=== PATIENT | female | born 1940 | race Caucasian/White ===

== ENCOUNTER 2017-10-13 15:47 | Emergency (ER) | payer MEDICARE, MEDICAID ==
[2017-10-13 16:02] VITALS: BP 144/73
--- NOTE | 2017-10-13 17:07 | UC ---
Kimberlee Linares Rebecca, scribed for Kathy De La Garza MD on 10/13/17 at 1646 . Lower Extremity/Ankle HPI - HPI Summary HPI Summary: Pt is a 76 y/o F who presents to ED c/o L great toe pain s/p toenail injury and partial detachment. 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 Reports that only part of the toenail detached, with some of it remaining attached. Associated pain is severe, ranked 9/10 and she has not taken any medications for it. Last Tetanus shot was within the last 10 years. Has had ingrown toenails removed from that toe 2-3 times in the past, many years ago, one of which was done by Dr. Romina Friedman. - History of Current Complaint Chief Complaint: UCLowerExtremity Stated Complaint: TORN TOENAIL Time Seen by Provider: 10/13/17 16:44 Hx Obtained From: Patient Onset/Duration: Lasting Hours, Still Present Severity Currently: Severe Pain Intensity: 9 Pain Scale Used: 0-10 Numeric Aggravating Factor(s): Nothing Able to Bear Weight: Yes - Allergies/Home Medications Allergies/Adverse Reactions: Allergies Allergy/AdvReac Type Severity Reaction Status Date / Time Penicillins Allergy Rash Verified 10/13/17 16:03 contrast dye Allergy Rash Uncoded 12/04/14 09:45 PMH/Surg Hx/FS Hx/Imm Hx Endocrine History: Thyroid Disease Cardiovascular History: Hypertension GI/ History: Ulcer - Surgical History Surgical History: Yes Surgery Procedure, Year, and Place: TONSILECTOMY, PARTIAL HYSTERECTOMY, HTN, FIBROMYALGIA - Family History Known Family History: Positive: Cardiac Disease - Social History Alcohol Use: Occasionally Substance Use Type: None Smoking Status (MU): Never Smoked Tobacco - Immunization History Most Recent Tetanus Shot: ? thinks she's due Review of Systems Constitutional: Negative Skin: Negative Eyes: Negative ENT: Negative Respiratory: Negative Cardiovascular: Negative Gastrointestinal: Negative Genitourinary: Negative Motor: Negative Neurovascular: Negative Musculoskeletal: Other: - L great toe pain and partial toenail detachment Neurological: Negative Psychological: Negative All Other Systems Reviewed And Are Negative: Yes Physical Exam Vital Signs: Initial Vital Signs Temp 97.7 F 10/13/17 15:55 Pulse 82 10/13/17 15:55 Resp 20 10/13/17 15:55 BP 144/73 10/13/17 15:55 Pulse Ox 96 10/13/17 15:55 Re-Evaluation - Re-Evaluation First Eval Re-Evaluation Time: 17:50 Change: Improved Comment: The toenail is flat and looks much better. Lower Extremity Course/Dx - Course Course Of Treatment: Pt refused XR. Patient medications reviewed this visit. Allergies noted. Discharge - Sign-Out/Discharge Documenting (check all that apply): Discharge/Admit/Transfer - Discharge - Discharge Plan Referrals: Amaris Prado NP [Primary Care Provider] - Romina Friedman DPM [Doctor of Podiatric Medicine] - () The documentation as recorded by the Kimberlee fisher Rebecca accurately reflects the service I personally performed and the decisions made by me, Kathy De La Garza MD.
[2017-10-13] MEDS ORDERED: DOXYcycline CAP(*) 100 MG PO ONE (17:54)
--- NOTE | 2017-10-13 20:13 | UC ---
- Progress Note Progress Note: Pt called UC - read package insert on Doxy - states can cause stomach ulcers pt states can't take it will Rx bactrim - pt has previously taken without difficuty christiano 10/13/2017 Re-Evaluation - Re-Evaluation First Eval Re-Evaluation Time: 17:50 Change: Improved Comment: The toenail is flat and looks much better. Discharge - Sign-Out/Discharge Documenting (check all that apply): Post-Discharge Follow Up - Discharge Plan Condition: Stable Disposition: HOME Prescriptions: DOXYcycline CAP(*) [DOXYcycline 100MG CAP(*)] 100 mg PO BID #14 cap Sulfamethox/Trimethoprim DS* [Bactrim DS 800/160 TAB*] 1 tab PO BID #14 tab Patient Education Materials: [employer] (ED) Referrals: Amaris Prado NP [Primary Care Provider] - Romina Friedman DPM [Doctor of Podiatric Medicine] - () Rj Gonzalez [Doctor of Podiatric Medicine] - Titi Sorto DPM [Doctor of Podiatric Medicine] - Additional Instructions: - Take antibiotics as prescribed until gone - Leave today's bandage on for 24 hours. After, soak your foot in warm epsom salt water for 15 minutes. Cover wound with thick layer of antibiotic ointment and bandage. 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 - Billing Disposition and Condition Condition: STABLE Disposition: Home
== END 2017-10-13 18:15 | disposition home or self-care (01) ==
LOC: UCEAST 15:47
DX: M79.675 Pain in left toe(s) (principal); S91.202A Unspecified open wound of left great toe with damage to nail, initial encounter; W20.8XXA Other cause of strike by thrown, projected or falling object, initial encounter; Y93.9 Activity, unspecified; Y92.000 Kitchen of unspecified non-institutional (private) residence as the place of occurrence of the external cause; E07.9 Disorder of thyroid, unspecified; I10 Essential (primary) hypertension; Z88.0 Allergy status to penicillin; Z91.041 Radiographic dye allergy status; Z82.49 Family history of ischemic heart disease and other diseases of the circulatory system
CPT/HCPCS: 99212; A9270-GY; G0463

== ENCOUNTER 2021-11-21 14:15 | Inpatient (IN) ==
[2021-11-21] MEDS ORDERED: Ondansetron 4 mg VIAL 2 MG/ML 2 ml VIAL IV PRN (20:59)
[2021-11-21 22:44] LABS: ABS Lymphocytes 1.8 10^3/ul (1.0-4.8); ABS Monocytes 0.6 10^3/ul (0-0.8); ABS Neutrophils 7.8 10^3/ul (1.5-7.7); Hematocrit 37 % (35-47); Lymphocyte % 17.5 %; Mean Corpuscular HGB Conc 33 g/dL (31-36); Mean Corpuscular Hemoglobin 30 pg (27-31); Mean Corpuscular Volume 91 fL (80-97); Mean Platelet Volume 10.3 fL (7.4-10.4); Platelet Count 187 10^3/uL (150-450); Red Blood Count 4.02 10^6 /uL (3.70-4.87); Red Cell Distribution Width 16 % (10-15); White Blood Count 10.2 10^3/uL (3.5-10.8)
[2021-11-21 23:09] LABS: Albumin 3.4 g/dL (3.2-5.2); Calcium 9.1 mg/dL (8.6-10.3); Globulin 3.5 g/dL (2-4); Potassium 3.4 mmol/L (3.5-5.0); Total Bilirubin 0.8 mg/dL (0.2-1.0); Total Protein 6.9 g/dL (6.4-8.9); eGFR CKD-EPI 88.2 (>60)
[2021-11-21 23:23] LABS: TSH Ultra Thyroid Stim Horm 1.63 mcIU/mL (0.34-5.60)
[2021-11-21] MEDS ORDERED: Potassium Chlor 20 meq TAB.ER PO ONE (23:32)
[2021-11-21 23:33] LABS: Folate 5.21 ng/mL (5.90-24.80)
[2021-11-21 23:50] LABS: Magnesium 1.7 mg/dL (1.9-2.7)
[2021-11-22 00:34] LABS: Urine Appearance Clear; Urine Bilirubin Negative (Negative); Urine Blood Trace (Intact) (Negative); Urine Glucose Negative (Negative); Urine Ketones Trace (Negative); Urine Nitrite Positive (Negative); Urine Protein 1+ (30 mg/dL) (Negative); Urine Specific Gravity 1.025 (1.005-1.030); Urine Urobilinogen 0.2 (Negative) (Negative); Urine pH 5.5 (5.0-9.0)
[2021-11-22 00:40] LABS: Urine Color Amber
[2021-11-22] MEDS ORDERED: Cyanocobalamin INJ 1,000 MCG/ML VIAL 1 ML VIAL IM ONE (01:00)
[2021-11-22] MEDS ORDERED: Magnesium Sulfate 2 gm BAG 2 GM/50 ML BAG IVPB ONE (01:00)
[2021-11-22 01:33] LABS: Urine Bacteria 1+ (Absent); Urine Red Blood Cell Trace(0-2/hpf) (Absent); Urine Squamous Epithelial Cell Present (Absent); Urine White Blood Cell 1+(6-10/hpf) (Absent)
[2021-11-22] MEDS: Enoxaparin 40 MG/0.4 ML SYR SUBCUT SCH ×2 (02:14→23:28)
[2021-11-22] MEDS ORDERED: Droperidol 5 MG/2 ML 2 ML VIAL IV ONE (05:19)
[2021-11-23 06:47] LABS: ABS Eosinophils 0.2 10^3/ul (0-0.6); ABS Lymphocytes 2.1 10^3/ul (1.0-4.8); ABS Monocytes 0.7 10^3/ul (0-0.8); ABS Neutrophils 4.2 10^3/ul (1.5-7.7); Eosinophil % 2.4 %; Hematocrit 34 % (35-47); Hemoglobin 11.4 g/dL (12.0-16.0); Lymphocyte % 28.9 %; Mean Corpuscular HGB Conc 33 g/dL (31-36); Mean Corpuscular Hemoglobin 31 pg (27-31); Mean Corpuscular Volume 93 fL (80-97); Mean Platelet Volume 11.2 fL (7.4-10.4); Platelet Count 160 10^3/uL (150-450); Red Blood Count 3.71 10^6 /uL (3.70-4.87); Red Cell Distribution Width 16 % (10-15); White Blood Count 7.2 10^3/uL (3.5-10.8)
[2021-11-23 07:04] LABS: Calcium 8.6 mg/dL (8.6-10.3); Potassium 3.8 mmol/L (3.5-5.0); eGFR CKD-EPI 86.6 (>60)
[2021-11-23] MEDS ORDERED: Bupivacaine 0.25% SDV 30 ML ONE (14:17)
[2021-11-23] MEDS ORDERED: Etomidate 20 mg/10 ml 2 MG/ML 10 ml VIAL ONE (14:23)
[2021-11-23] MEDS ORDERED: fentaNYL 100 mcg/2 ml 50 MCG/ML VIAL ONE (14:23)
[2021-11-23] MEDS ORDERED: Propofol 10 MG/ML 20 ML BTL ONE (14:23)
[2021-11-23] MEDS ORDERED: Midazolam 2 mg/2 ml VIAL 1 mg/ml 2 ml VIAL (2 mg) ONE (14:24)
[2021-11-23] MEDS ORDERED: ROPIVACAINE 5 MG/ML 30 ML BTL (0.5%) ONE (14:27)
[2021-11-23] MEDS ORDERED: Bupivacaine 0.25% w/EPI 10 ML SDV ONE (14:27)
[2021-11-23] MEDS ORDERED: Lidocaine 2% PF 5 ML VIAL ONE (14:27)
[2021-11-23] MEDS ORDERED: Clindamycin 900 MG/D5W BAG 900 MG/50 ML BAG IVPB ONE (15:04)
[2021-11-23] MEDS ORDERED: Vancomycin 1,000 MG VIAL ONE (17:34)
[2021-11-23] MEDS ORDERED: HYDROmorphone 1 MG/1 ML SYRINGE IV PRN (18:18)
[2021-11-23] MEDS ORDERED: Ondansetron 4 mg VIAL 2 MG/ML 2 ml VIAL IV PRN (18:18)
[2021-11-23] MEDS ORDERED: Naloxone 0.4 mg VIAL 0.4 mg/ml 1 ml VIAL IV PRN (18:18)
[2021-11-23] MEDS ORDERED: fentaNYL 100 mcg/2 ml 50 MCG/ML VIAL IV PRN (18:18)
[2021-11-23] MEDS ORDERED: Acetaminophen IV 1 GM/100ML 1,000 MG/100 ML BAG IV PRN (18:18)
[2021-11-23] MEDS: Enoxaparin 40 MG/0.4 ML SYR SUBCUT SCH (21:43)
[2021-11-24] MEDS: ceFAZolin 1 GM X 3 DOSES POST-OP Q8H (AddVan) IVPB SCH ×2 (02:48→13:15)
[2021-11-24 05:31] LABS: ABS Lymphocytes 1.2 10^3/ul (1.0-4.8); ABS Monocytes 0.7 10^3/ul (0-0.8); ABS Neutrophils 6.4 10^3/ul (1.5-7.7); Hematocrit 31 % (35-47); Hemoglobin 10.3 g/dL (12.0-16.0); Lymphocyte % 14.5 %; Mean Corpuscular HGB Conc 34 g/dL (31-36); Mean Corpuscular Hemoglobin 31 pg (27-31); Mean Corpuscular Volume 92 fL (80-97); Platelet Count 171 10^3/uL (150-450); Red Blood Count 3.33 10^6 /uL (3.70-4.87); Red Cell Distribution Width 16 % (10-15); White Blood Count 8.4 10^3/uL (3.5-10.8)
[2021-11-24 06:00] LABS: Calcium 8.4 mg/dL (8.6-10.3); Potassium 4.1 mmol/L (3.5-5.0); eGFR CKD-EPI 88.2 (>60)
[2021-11-24] MEDS ORDERED: Cyanocobalamin INJ 1,000 MCG/ML VIAL 1 ML VIAL IM ONE (08:31)
[2021-11-24] MEDS ORDERED: Polyethylene Glycol 3350 17 GM PACKET PO PRN (16:50)
[2021-11-24] MEDS ORDERED: Senna TAB 8.6 mg TAB PO PRN (16:50)
[2021-11-24] MEDS: Haloperidol 5 mg/ml SDV IV/IM 5 MG/ML AMP IM PRN (21:35)
[2021-11-24] MEDS: Enoxaparin 40 MG/0.4 ML SYR SUBCUT SCH (21:39)
[2021-11-25 05:51] LABS: ABS Lymphocytes 1.9 10^3/ul (1.0-4.8); ABS Monocytes 0.9 10^3/ul (0-0.8); Eosinophil % 0.4 %; Hematocrit 30 % (35-47); Lymphocyte % 19.6 %; Mean Corpuscular HGB Conc 33 g/dL (31-36); Mean Corpuscular Hemoglobin 31 pg (27-31); Mean Corpuscular Volume 93 fL (80-97); Mean Platelet Volume 10.8 fL (7.4-10.4); Platelet Count 163 10^3/uL (150-450); Red Blood Count 3.24 10^6 /uL (3.70-4.87); Red Cell Distribution Width 16 % (10-15); White Blood Count 9.9 10^3/uL (3.5-10.8)
[2021-11-25 06:17] LABS: Calcium 8.4 mg/dL (8.6-10.3); Potassium 3.9 mmol/L (3.5-5.0); eGFR CKD-EPI 90.3 (>60)
[2021-11-25] MEDS: Enoxaparin 40 MG/0.4 ML SYR SUBCUT SCH (20:29)
[2021-11-26] MEDS: Enoxaparin 40 MG/0.4 ML SYR SUBCUT SCH (21:00)
[2021-11-27] MEDS: Haloperidol 5 mg/ml SDV IV/IM 5 MG/ML AMP IM PRN (02:34)
[2021-11-27] MEDS: Enoxaparin 40 MG/0.4 ML SYR SUBCUT SCH (20:55)
[2021-11-28] MEDS: Enoxaparin 40 MG/0.4 ML SYR SUBCUT SCH (20:48)
[2021-11-29] MEDS: Haloperidol 5 mg/ml SDV IV/IM 5 MG/ML AMP IM PRN (01:48)
[2021-11-29 05:21] LABS: Hematocrit 29 % (35-47); Hemoglobin 9.6 g/dL (12.0-16.0)
[2021-11-29] MEDS: Enoxaparin 40 MG/0.4 ML SYR SUBCUT SCH (20:04)
[2021-11-30 18:51] LABS: Rapid COVID-19 Molecular Undetected (Undetected)
[2021-11-30] MEDS: Enoxaparin 40 MG/0.4 ML SYR SUBCUT SCH (21:24)
[2021-12-01] MEDS: Haloperidol 5 mg/ml SDV IV/IM 5 MG/ML AMP IM PRN (02:08)
[2021-12-01] MEDS ORDERED: Cyanocobalamin INJ 1,000 MCG/ML VIAL 1 ML VIAL IM SCH (09:00)
[2021-12-01 11:07] VITALS: BP 115/50
== END 2021-12-01 13:45 | DRG 493 ==
LOC: ED 14:15 → SUATTDRO 20:58 → EDHOLD 20:58 → SSU 11-22 04:00
PROVIDERS: ADMIT Student in an Organized Health Care Education/Training Program; ATTEND Internal Medicine